=== PATIENT | male | born 1975 | race Two or more races ===

== ENCOUNTER 2020-03-13 03:28 | Emergency (ER) | payer OTHER ==
[2020-03-13 03:35] VITALS: BP 131/94; PULSE 64; TEMP 98.6
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
[2020-03-13 05:08] VITALS: BMI 25.8
== END 2020-03-13 04:00 | disposition left against medical advice (07) ==
LOC: JER 03:28
PROC: 3E033GC Introduction of Other Therapeutic Substance into Peripheral Vein, Percutaneous Approach (ICD-10-PCS; principal; 2020-03-13)
DX: F19.129 Other psychoactive substance abuse with intoxication, unspecified (principal)
CPT/HCPCS: 96374; 96375; 99284-25